=== PATIENT | male | born 1985 | race African-American/Black ===

== ENCOUNTER 2017-11-23 04:44 | Emergency (ER) | payer MEDICAID ==
[~2017-11-23] VITALS: Ht 185.4 cm; Wt 126.5 kg
[2017-11-23 04:58] VITALS: Ht 185.4 cm; Wt 126.5 kg
[2017-11-23 05:56] VITALS: BP 163/89
== END 2017-11-23 05:57 | disposition left against medical advice (07) ==
LOC: ED 04:44
DX: Z53.21 Procedure and treatment not carried out due to patient leaving prior to being seen by health care provider (principal)